=== PATIENT | female | born 1950 | race Caucasian/White ===

== ENCOUNTER 2024-05-23 10:25 | Inpatient (IN) | payer MEDICARE, MEDICAID ==
[~2024-05-23] VITALS: Ht 162.6 cm; Wt 87.5 kg
[2024-05-23] MEDS: SODIUM CHLORIDE 0.9% 1,000 ML IV ONE (11:05)
[2024-05-23 11:18] LABS: BASOPHILS % 0.7 % (0.0-2.0); EOSINOPHILS % 4.7 % (0.0-5.0); HEMOGLOBIN. 11.6 g/dL (12.0-16.0); LYMPHOCYTES % 39.5 % (20.0-50.0); MEAN CORPUSCULAR HEMOGLOBIN 31.4 pg (28.0-32.0); MEAN CORPUSCULAR HGB CONC 33.2 g/dL (31.0-37.0); MEAN CORPUSCULAR VOLUME 94.8 fL (81.0-99.0); MEAN PLATELET VOLUME 7.6 fl (7.4-10.4); MONOCYTES % 4.8 % (2.0-8.0); NEUTROPHILS % 50.3 % (40.0-76.0); PLATELET 179 x1000/uL (130-400); RED BLOOD CELL COUNT 3.69 mill/uL (4.2-5.4); RED CELL DISTRIBUTION WIDTH 12.5 % (11.6-14.6); WHITE BLOOD COUNT 4.5 x1000/uL (4.5-11.0)
[2024-05-23 11:20] LABS: CHLORIDE 103 mEq/L (98-107); POTASSIUM 3.9 mEq/L (3.5-5.1); SODIUM 136 mEq/L (136-145)
[2024-05-23 11:21] LABS: CALCIUM 9.2 mg/dL (8.7-10.4); CARBON DIOXIDE 25 mEq/L (21-32)
[2024-05-23 11:26] LABS: CREATININE 0.8 mg/dL (0.6-1.0); GLUCOSE 358 mg/dL (70-105); TROPONIN I HIGH SENSITIVITY 10 ng/L (3.0-34); UREA NITROGEN BLOOD 12 mg/dL (9-23)
[2024-05-23] MEDS: INSULIN REGULAR (HUMULIN R) 1000UNITS/10ML VIAL IV ONE (12:00)
[2024-05-23 17:00] VITALS: BP 140/67; PULSE 62; RESP 18; TEMP 36.50292; O2SAT 98
[2024-05-23] MEDS ORDERED: DOCUSATE SODIUM 100MG CAPSULE PO PRN (17:30)
[2024-05-23] MEDS ORDERED: NALOXONE HCL 0.4MG/ML VIAL IV PRN (17:30)
[2024-05-23 17:36] VITALS: BP 140/67; PULSE 61; RESP 18; TEMP 36.5292
[2024-05-23] MEDS ORDERED: METF500S9 PO (18:00)
[2024-05-23] MEDS ORDERED: LISI-186 PO (18:01)
[2024-05-23] MEDS ORDERED: EZET10TA81 PO (18:02)
[2024-05-23] MEDS ORDERED: LIP40 MT (18:03)
[2024-05-23] MEDS ORDERED: DULA1.5P SQ (18:04)
[2024-05-23] MEDS ORDERED: GABA-1180 PO (18:06)
[2024-05-23] MEDS: ACETAMINOPHEN 325MG TABLET PO PRN (18:40)
[2024-05-23] MEDS: CELECOXIB 200MG CAPSULE PO SCH (18:40)
[2024-05-23] MEDS: ASPIRIN 81MG TABLET PO SCH (18:40)
[2024-05-23] MEDS: ENOXAPARIN 40MG/0.4ML SYR SUBCUT SCH (18:41)
[2024-05-23 20:00] VITALS: BP 129/58; PULSE 67; RESP 18; TEMP 36.16956; O2SAT 96
[2024-05-23] MEDS: ATORVASTATIN CALCIUM 40MG TABLET PO SCH (21:23)
[2024-05-23] MEDS: METOPROLOL TARTRATE 25MG TABLET PO SCH (21:24)
[2024-05-23] MEDS ORDERED: DEXTROSE 50% WATER 50ML SYRINGE IV PRN (23:15)
[2024-05-23] MEDS: INSULIN LISPRO 100 UNITS/ML SUBCUT SCH (23:19)
[2024-05-24] VITALS: BP 109/46; PULSE 54; RESP 18; TEMP 36.16956; O2SAT 96
[2024-05-24 04:00] VITALS: BP 110/59; PULSE 64; RESP 18; TEMP 36.44736; O2SAT 97
[2024-05-24] MEDS: HYDROCODONE/ACETAMINOPHEN 5/325MG TABLET PO PRN (04:58)
[2024-05-24 05:53] LABS: CARBON DIOXIDE 25 mEq/L (21-32); CHLORIDE 107 mEq/L (98-107); POTASSIUM 4.1 mEq/L (3.5-5.1); SODIUM 141 mEq/L (136-145)
[2024-05-24 05:54] LABS: CALCIUM 9.5 mg/dL (8.7-10.4)
[2024-05-24 05:59] LABS: CREATININE 0.6 mg/dL (0.6-1.0); GLUCOSE 162 mg/dL (70-105); UREA NITROGEN BLOOD 8 mg/dL (9-23)
[2024-05-24 06:13] LABS: BASOPHILS % 0.8 % (0.0-2.0); EOSINOPHILS % 6.8 % (0.0-5.0); HEMATOCRIT. 34.1 % (36.0-48.0); HEMOGLOBIN. 11.6 g/dL (12.0-16.0); MEAN CORPUSCULAR HEMOGLOBIN 31.9 pg (28.0-32.0); MEAN CORPUSCULAR HGB CONC 33.9 g/dL (31.0-37.0); MEAN CORPUSCULAR VOLUME 94.1 fL (81.0-99.0); MEAN PLATELET VOLUME 7.9 fl (7.4-10.4); MONOCYTES % 5.5 % (2.0-8.0); NEUTROPHILS % 43.9 % (40.0-76.0); PLATELET 190 x1000/uL (130-400); RED BLOOD CELL COUNT 3.62 mill/uL (4.2-5.4); RED CELL DISTRIBUTION WIDTH 12.8 % (11.6-14.6); WHITE BLOOD COUNT 4.8 x1000/uL (4.5-11.0)
[2024-05-24] MEDS: BLOOD SUGAR DIAGNOSTIC STRIP TEST SCH (06:53)
[2024-05-24] MEDS ORDERED: INSULIN LISPRO 100 UNITS/ML SUBCUT SCH (07:40)
[2024-05-24 08:00] VITALS: BP 148/78; PULSE 63; RESP 18; TEMP 36.55848; O2SAT 98
[2024-05-24] MEDS ORDERED: ASPIRIN 81MG EC TABLET PO SCH (09:00)
[2024-05-24 12:00] VITALS: BP 165/57; PULSE 52; RESP 18; TEMP 36.3918; O2SAT 98
[2024-05-24] MEDS: LACTULOSE 20G/30ML UDC PO NR (13:09)
[2024-05-24 16:00] VITALS: BP_SYST 139; BP_SYST 165; BP_DIAS 57; BP_DIAS 58; PULSE 52; PULSE 56; RESP 18; TEMP 36.72516; O2SAT 98
== END 2024-05-24 18:20 | disposition home or self-care (01) | DRG 638 ==
LOC: ER 10:25 → 8WST 12:12
PROVIDERS: ADMIT Internal Medicine; ATTEND Internal Medicine
DX: E11.65 Type 2 diabetes mellitus with hyperglycemia (principal); I20.0 Unstable angina; D64.9 Anemia, unspecified; R07.2 Precordial pain; R07.89 Other chest pain; E78.00 Pure hypercholesterolemia, unspecified; I10 Essential (primary) hypertension; F41.9 Anxiety disorder, unspecified; Z79.84 Long term (current) use of oral hypoglycemic drugs
CPT/HCPCS: 36415; 71045; 80048; 82962; 83036; 83880; 84484; 85025; 93005; 93306; 99285; J1650; J1815; J7030